=== PATIENT | female | born 2000 | race Caucasian/White ===

== ENCOUNTER 2021-07-07 15:02 | Emergency (ER) | payer BC, SELFPAY ==
[2021-07-07 15:20] VITALS: BP 129/78; PULSE 98; RESP 16; TEMP 37.1; O2SAT 99
--- NOTE | 2021-07-07 15:20 | ECG_ITS ---
Measurements Intervals [place] Rate: 96 P: 15 CA: 182 QRS: 18 QRSD: 98 T: 17 QT: 325 QTc: 411 Interpretive Statements SINUS RHYTHM NO PREVIOUS ECG AVAILABLE FOR COMPARISON Electronically Signed On 07-08-2021 11:36:34 [employer] by Roni Cevallos M.D.
--- NOTE | 2021-07-07 15:41 | ED.CHESTPAIN ---
HPI - Chest Pain General Chief Complaint: Chest Pain Stated Complaint: CHEST PAIN Time Seen by Provider: 07/07/21 15:20 Source: patient, RN notes reviewed, old records reviewed and other (friend) Mode of arrival: ambulatory Limitations: no limitations History of Present Illness HPI narrative: 21 year old female who presents to [facility] care accompanied by friend with complaints left upper chest pain radiating to shoulder and neck since this afternoon around 1420 after participating in weight lifting class. Patient reports that she worked on legs today but she did perform squats with bars over her head of light weight. Patient states that she have history of anxiety and took some buspirone and 2 Ibuprofen with no resolution of pain but feels like she is calmer. Patient denies any shortness of breath, denies any tightness in the chest, no increase pain with deep breathing, no nausea vomiting or diaphoresis noted, able to speak in full sentences.. with respirations even and nonlabored. MD complaint: chest pain Pertinent past history: asthma Onset (ago): hour(s) (at 1430 today) Timing of current episode: episodic and still present Prior episodes: No Pain location: left chest Pain radiation: neck and left shoulder Severity: moderate Pain scale (0-10): 8 Quality: aching Relieving factors: nothing Treatment prior to arrival: other (buspar and Ibuprofen) Related Data Home Medications Medication Instructions Recorded Confirmed buspirone 15 mg PO DAILY 07/07/21 07/07/21 escitalopram oxalate 10 mg PO DAILY 07/07/21 07/07/21 metformin 500 mg PO DAILY 07/07/21 07/07/21 Allergies Allergy/AdvReac Type Severity Reaction Status Date / Time No Known Allergies Allergy Verified 07/07/21 15:20 Review of Systems Review of Systems: CONSTITUTIONAL: Denies fever, chills, or sweats. EYES: Denies visual changes, redness, or discharge. ENT: Denies rhinorrhea, congestion, sore throat, or otalgia. CARDIOVASCULAR: positive for left chest pain radiates to left shoulder and neck,no palpitations, or edema. RESPIRATORY: Denies cough or dyspnea. GASTROINTESTINAL: Denies abdominal pain, nausea, vomiting, or diarrhea. GENITOURINARY: Denies dysuria or hematuria. SKIN: Denies rash or itching. MUSCULOSKELETAL: Denies back pain, joint pain, or myalgia. NEUROLOGIC: Denies headache, numbness, or weakness. PSYCHIATRIC: Positive history anxiety or depression. All systems reviewed & are unremarkable except as noted in HPI and below PMFSH Past Medical History Medical History (Updated 07/07/21 @ 18:28 by Radha Colindres NP) Anxiety and depression Insulin resistance Obesity Social History Social History (Updated 07/07/21 @ 15:44 by Radha Colindres NP) Smoking status: Never smoker Comments At time of signature, agree with nursing past medical, surgical, social and family history. There is no relevant family history pertinent to the presenting complaint Exam Narrative: GENERAL: Well-appearing, well-nourished, and in no acute distress. HEAD: Normocephalic, atraumatic. EYES: PERRLA and EOMI. ENT: Nares clear, no rhinorrhea or epistaxis. Mucous membranes moist.TM's normal with good light reflex,throat pink with no lesions or exudates, no tonsil enlargement NECK: Supple.no lymphadenopathy CHEST: Clear to auscultation. No respiratory distress.no tachypnea or any complaints of dyspnea, SAO2 99% on room air HEART: Regular rate and rhythm. No murmur heard. Normal peripheral pulses. ABDOMEN: Soft, nontender, nondistended, normal active bowel sounds. EXTREMITIES: Normal range of motion. No edema.no increase pain with movement of left arm or shoulder no pain with movement of neck, no diaphoresis, no nausea SKIN: Warm, dry, no rash. NEURO: No focal deficits. Alert and oriented x3. Course Course Level of Care: Express Care Visit Vital Signs Vital signs: Vital Signs Temperature 37.1 C 07/07/21 15:20 Pulse Rate 98 07/07/21 15:20 Respiratory Rate 16 02
== END 2021-07-07 15:58 | disposition home or self-care (01) ==
PROVIDERS: Emergency Provider Registered Nurse
DX: R07.89 Other chest pain (principal); F41.9 Anxiety disorder, unspecified; J45.909 Unspecified asthma, uncomplicated; F32.A Depression, unspecified; E88.81 Metabolic syndrome and other insulin resistance; E66.9 Obesity, unspecified; Z68.41 Body mass index [BMI] 40.0-44.9, adult
CPT/HCPCS: 93005; 99213; G0463